=== PATIENT | male | born 2000 | race Caucasian/White ===

== ENCOUNTER 2023-03-14 08:55 | Outpatient (AMB) | payer OTHER, SELFPAY ==
--- NOTE | 2023-03-14 09:35 | MHC.AMDMED ---
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 2= needs review? 3= comprehend keep point? 4= demonstrates understanding/ competent? NC= Not Covered Topics Learning Objective: Initial visit Initial or post srvc Initial or post srvc Initial or post srvc Initial or post srvc Initial or post srvc Post srvc Comments Pre Edu-assessment/plan Outcome or reassess Outcome or reassess Outcome or reassess Outcome or reassess Outcome or reassess Outcome or reassess Diabetes pathophysiology 1 Healthy eating 2 Being active Taking medication 2 Monitoring glucose 2 Acute complication 1 Chronic complicated Lifestyle and healthy coping Diabetes distress in support ?Diabetes pathophysiology: ?Defined diabetes med identify own type of diabetes; list 3 options for treating diabetes Healthy eating: ?Described effect of type, amount and ?timing of food on blood glucose; list 3 methods for planning meal Being active: ?State effect of exercise on blood glucose level Taking medication: ?State effect of diabetes medications on diabetes; name diabetes medications taking, action and side effects Monitoring glucose: ?Identify recommended blood glucose targets and personal target Acute complication: ?List symptoms and treatment of hyper and hypoglycemia, DKA, sick day guidelines and guidelines for severe weather or situations of crisis and diabetes supply manage Chronic complication: ?To find the relationship of blood glucose levels to long-term complications of diabetes in screening and preventative measures Lifestyle and healthy coping: ?Described lifestyle and healthy coping strategies to rule out diabetes self-management Diabetes to stress and support: ?Recognize Diabetes to stress and be able to identified support options Learning objectives: The patient was provided with verbal and written education on the following topics as outlined below. The patient met all learning objectives and was able to verbalize understanding and provide teach back of education topics discussed . The patient was provided with the opportunity to ask questions and all questions were answered. Patient Assessment Assess patient education level/literacy/barriers Patient questions/concerns, patient newly diagnosed with type 1 diabetes in November 2022. He did not bring glucometer to today's visit he does report he tests 3-4 times daily before meals. He is currently taking Lantus 12 units daily Humalog 6 units before meals, he reports infrequent hypoglycemic events His A1c at time of diagnosis was 10.6%, reports that he had been experiencing unexplained weight loss infrequent urination before diagnosis Since starting insulin, symptom have improved What is Diabetes? Pathophysiology How the body produces and uses insulin Identify type of DM Risk factors Signs of Diabetes Brief overview of Diabetes Management Monitoring blood sugar Following a meal plan Regular exercise Maintaining a healthy weight Taking medication as needed Members of the care team (PCP, RN, MA, RD, CDE, lithographic press operator) Blood glucose monitoring When/how often to test Target blood sugar ranges Patient did not bring meter to today's visit Introduction to Nutrition Importance of healthy diet in managing DM Diet is personalized to individual preference Review patient?s regular diet/food preferences Who prepares meals/does food shopping/ Dining out?/ Barriers? How diet effects glucose Eating 3 balanced meals a day with small, healthy snacks between meals Review food groups Carbohydrates: What is a carbohydrate/Which food/food groups are considered carbohydrates Effect of carbohydrates on blood glucose Portion sizes Reading food labels Basic carb counting (if applicable per nursing assessment) Plate method Meal planning Recommendations: Follow plate method, consistent carbs and read nutritional labels. Smart Goal: Patient will keep meals 45-60 g per meal, 15 g per snack Educational Materials: The patient was provided with the following written educational materials: Planning Healthy Meals Handout Patient Response to instructions: Comprehension of Instructions: Fair Readiness to make changes: Contemplation How confident they feel about making changes: Positive Patient Instructions: People with diabetes face a higher risk for complications. In general, people with diabetes are more likely to experience severe symptoms and complications when infected with a virus. The problem people with diabetes face is primarily a problem of worse outcomes Before you get sick,?make a plan: Gather your supplies: ? Phone numbers of your doctors and healthcare team, your pharmacy and your insurance provider ? List of medications and doses (including vitamins and supplements) ? Simple carbs like regular soda, honey, jam, Jell-O, hard candies or popsicles to help keep your blood sugar up if you are at risk for lows and too ill to eat ? If a state of emergency is declared, get extra refills on your prescriptions so you do not have to leave the house ?? If you can't get to the pharmacy, find out about having your medications delivered ? Always have enough insulin for the week ahead, in case you get sick or cannot refill ? Extra supplies like rubbing alcohol and soap to wash your hands ? Glucagon and ketone strips, in case of lows and highs ? Have enough household items and groceries on hand so that you will be prepared to stay at home for a period of time Talk to your health care team about the following: ? When to call your doctor's office (for ketones, changes in food intake, medication adjustments, etc.) ? How often to check your blood sugar ? When to check for ketones ? Medications you should use for colds, flu, virus, and infections ? Any changes to your diabetes medications when you are sick Take everyday precautions: ? Avoid close contact with people who are sick ? Take preventive actions: ??? Clean your hands often Wash your hands often with soap and water for at least 20 seconds, especially after blowing your nose, coughing, or sneezing, or having been in a public place. ?? If soap and water are not available, use a hand corporate associate attorney that contains at least 60% alcohol. To the extent possible, avoid touching high-touch surfaces in public places?elevator buttons, door handles, handrails, handshaking with people, etc. Use a tissue or your sleeve to cover your hand or finger if you must touch something. Wash your hands after touching surfaces in public places. ? Avoid touching your face, nose, eyes, etc. Clean and disinfect your home to remove germs: practice routine cleaning of frequently touched surfaces (for example: tables, doorknobs, light switches, handles, desks, toilets, faucets, sinks & cell phones) Avoid crowds, especially in poorly ventilated spaces. Your risk of exposure to respiratory viruses like COVID-19 may increase in crowded, closed-in settings with little air circulation if there are people in the crowd who are sick. Avoid all non-essential travel including plane trips, and especially avoid embarking on cruise ships. Watch for emergency warning signs: If you develop emergency warning signs get medical attention?immediately. In adults, emergency warning signs include: ? Difficulty breathing or shortness of breath ? Persistent pain or pressure in the chest ? New confusion or inability to arouse ? Bluish lips or face If you do get sick, know what to do: Here are some common tips, which may vary for each person: ? Drink lots of fluids. If you're having trouble keeping water down, have small sips every 15 minutes or so throughout the day to avoid dehydration. ? If you are experiencing a low (blood sugar below 70 mg/dl or your target range), eat 15 grams of simple carbs that are easy to digest like honey, jam, Jell-O, hard candy, popsicles, juice or regular soda, and re-check your blood sugar in 15 minutes to make sure your levels are rising. Check your blood sugar extra times throughout the day and night (generally, every 2-3 hours; if using a CGM, monitor frequently). ? If your blood sugar has registered high (BG greater than 240mg/dl) more than 2 times in a row ? Call your doctor's office immediately, if you have medium or large ketones (and if instructed to with trace or small ketones). ? Wash your hands and clean your injection/infusion and finger-stick sites with soap and water or rubbing alcohol. Why do blood glucose values go up when I am sick? Your body is under stress when you are sick. Hormones that are released to help fight the illness can also raise your glucose levels. Your body becomes less sensitive to your insulin too, so you need more to have the same effect compared to when you are well. What should I always keep on hand to be prepared for a sick day? Glucose testing kit and strips (more than you think you will need) or CGM sensors ? Ketone testing supplies, either urine or special test strips for fingerstick testing with specific meter (even if you feel you never get sick because the level of ketones lets you and your team know how severely your diabetes is being affected by your illness) ? Plenty of water or sugar-free beverages ? Plenty of all your types of insulin What should I do when I am sick? Continue to take your insulin even if you are not eating much. Take your long acting insulin or continue your basal insulin if you are on an insulin pump. ? Check your blood glucose values every 3-4 hours. If you have a continuous glucose monitor, watch for trends and make sure your correctional insulin is working. ? Check for ketones even if your blood glucose values are not high. Call your diabetes team if your ketones are moderate or high. When you are sick, they can be high even when your glucose values are within your target range. ? Stay well hydrated, drinking fluid every hour ? tea, water, diet soda, broth. ? Make sure you are also eating some carbohydrates When should I call for help? You have been sick or had a fever for a few days and are not getting better. ? You are vomiting or have diarrhea for more than 6 hours. ? You have moderate to large ketones even if your glucose is not high. ? Your blood glucose values stay above 240 mg/dl even when you are giving extra insulin. You are not sure what to do When should I get help right away? Follow up with Diabetes Education Nurse in 1 month Coding Level of Care Code Tele Est Pt Level 1 (58885) Diagnoses Diabetes, type I E10.9
== END 2023-03-14 10:08 | disposition home or self-care (01) ==
PROVIDERS: PCP Pediatrics; Visit Provider Registered Nurse Diabetes Educator
DX: E10.9 Type 1 diabetes mellitus without complications (principal)
CPT/HCPCS: 99211

== ENCOUNTER → 2023-03-14 08:55 | Outpatient (BNVA) | payer OTHER, SELFPAY | PROVIDERS: Visit Provider Registered Nurse Diabetes Educator ==

== ENCOUNTER 2023-04-20 12:31 | Outpatient (AMB) | payer OTHER, SELFPAY ==
--- NOTE | 2023-04-20 13:26 | A.OFFVIS_ITS ---
Intake Intake Visit Reasons: DM HPI Comprehensive Diabetes Asmnt Most Recent Diabetes Results: No Data to Display Assessment & Plan Assessment & Plan (1) Diabetes, type I: Code(s): E10.9 - Type 1 diabetes mellitus without complications Plan: Diabetes self-management education and support participation record Assessment/scale: 1= needs instructed? 2= needs review? 3= comprehend keep point? 4= demonstrates understanding/ competent? NC= Not Covered Topics Learning Objective: Initial visit Initial or post srvc Initial or post srvc Initial or post srvc Initial or post srvc Initial or post srvc Post srvc Comments Pre Edu-assessment/plan Outcome or reassess Outcome or reassess Outcome or reassess Outcome or reassess Outcome or reassess Outcome or reassess Diabetes pathophysiology 1 3 Healthy eating 2 Being active 2 Taking medication 2 B Monitoring glucose 2 3 Acute complication 1 3 Chronic complicated 1 Lifestyle and healthy coping 1 Diabetes distress in support 2 ?Diabetes pathophysiology: ?Defined diabetes med identify own type of diabetes; list 3 options for treating diabetes Healthy eating: ?Described effect of type, amount and ?timing of food on blood glucose; list 3 methods for planning meal Being active: ?State effect of exercise on blood glucose level Taking medication: ?State effect of diabetes medications on diabetes; name diabetes medications taking, action and side effects Monitoring glucose: ?Identify recommended blood glucose targets and personal target Acute complication: ?List symptoms and treatment of hyper and hypoglycemia, DKA, sick day guidelines and guidelines for severe weather or situations of crisis and diabetes supply manage Chronic complication: ?To find the relationship of blood glucose levels to long- term complications of diabetes in screening and preventative measures Lifestyle and healthy coping: ?Described lifestyle and healthy coping strategies to rule out diabetes self-management Diabetes to stress and support: ?Recognize Diabetes to stress and be able to identified support options Learning objectives: The patient was provided with verbal and written education on the following topics as outlined below. The patient met all learning objectives and was able to verbalize understanding and provide teach back of education topics discussed . The patient was provided with the opportunity to ask questions and all questions were answered. Patient Assessment Assess patient education level/literacy/barriers Patient questions/concerns, patient at visit with his mother. Patient has appointment with unload associate on 04/21/2023. At that visit patient will be due for next A1c Reviewed patient's glucose meter download, patient testing 2-3 times daily Patient has several episodes hypoglycemia, patient reports he has been taking Lantus 10 units and not using Humalog. Recommended to patient he discuss hypoglycemic events with unload associate, and continues glucose monitoring with alerts and alarms Patient has not obtained ketones is instructed to last visit Reviewed from last rule about testing for ketones. Suggested to patient he discuss with his unload associate a plan if he is positive for ketones walk insulin plan should be Patient's fasting glucose range from 56-145 mg/dL Blood glucose testing more sporadic throughout the day Exercise Medical clearance Effect of exercise on blood sugar Start slowly and gradually increase pace/duration over time Goal amount of exercise Checking blood glucose/have a source of carbs with you Medications (If applicable) * Name of medication * Dosing/administration instructions * Mechanism of action * Potential side effects * Potential adverse reaction and appropriate treatment * Review onset, peak, duration Assess for concerns re: insurance coverage, cost, barriers to compliance Insulin/Injectables (If applicable) * Storage/care of insulin * Injection sites * Site rotation * Onset, peak, duration * Drawing up insulin * Injecting insulin/other injectables * Sharps disposal Continuous blood glucose monitoring (if applicable) Hypoglycemia and Hyperglycemia * Signs and symptoms * Causes * Treatment * Preventing hypoglycemia * When to seek medical attention Medical alert bracelet Lifestyle * Work * Travel * Stress management * Problem solving Know your goals * A1C * Blood sugar targets * Blood pressure * Cholesterol/LDL Urine microalbumin Smart Goal Assessment: Pt met goal:Pt All of the time/100%: 75% of the time: 50% of the time: Less than 25% the time: New Goal:? Educational Materials: The patient was provided with the following written educational materials: Diabetes screening checklist Patient Response to instructions: Comprehension of Instructions: Good Readiness to make changes: action How confident they feel about making changes: positive Patient Instructions: DIABETES PROBLEMS HOMECARE INSTRUCTIONS Hypo instructions ? When first signs of insulin reaction occur, immediately drink orange juice or cola, or suck on a sugar cube, but only if the person is conscious. ? Person with diabetes should continue taking insulin when ill, unless he/she is not able to eat.? Regularly check blood sugar or urine for sugar and acetone during illness. ? Exercise regularly. ? Pay special attention to the feet.? Avoid cuts, sores, blisters, ill- fitting shoes, or going barefoot.? Promptly treat injuries to the feet. ? Take medications as directed by physician. ? Drink extra water or noncaffeinated, nonsugared drinks to prevented hydration. Signs and symptoms of low blood sugar (happen quickly) Each person's reaction to low blood sugar is different. Learn your own signs and symptoms of when your blood sugar is low. Taking time to write these symptoms down may help you learn your own symptoms of when your blood sugar is low. From milder, more common indicators to most severe, signs and symptoms of low blood sugar include: Feeling shaky Being nervous or anxious Sweating, chills and clamminess Irritability or impatience Confusion Fast heartbeat Feeling lightheaded or dizzy Hunger Nausea Color draining from the skin (pallor) Feeling Sleepy Feeling weak or having no energy Blurred/impaired vision Tingling or numbness in the lips, tongue, or cheeks Headaches Coordination problems, clumsiness Hypoglycemia or blood glucose under 70 use the rule of 15's: If you have your blood glucose meter test your blood glucose, if you do not have your meter still follow below instruction: Keep quick-sugar foods with you at all times.? Take 15 grams of fast acting carbohydrates. Examples are 4 ounces of fruit juice or regular soda pop, 8 ounces fat-free milk, 1 tablespoon of table sugar, honey or corn syrup, jam, one miniature box of raisins, 7-8 gumdrops or Life Savers candy, 4 glucose tablets, and glucose gel.? Retest blood glucose in 15 minutes, if blood glucose is still under 80,repeat rule of 15's. If blood glucose is under 50, take 30 grams of fast acting carbohydrates If you are having hypoglycemia, or insulin reaction, more that a few times a week, call MD or tobacco educator F/U BG check Coding Level of Care Code Est Pt Level 1 (85356) Diagnoses Diabetes, type I E10.9
== END 2023-04-20 13:38 | disposition home or self-care (01) ==
PROVIDERS: Visit Provider Registered Nurse Diabetes Educator
DX: E10.9 Type 1 diabetes mellitus without complications (principal)

== ENCOUNTER → 2023-04-20 12:31 | Outpatient (BNVA) | payer OTHER, SELFPAY | PROVIDERS: Visit Provider Registered Nurse Diabetes Educator | DX: E10.9 Type 1 diabetes mellitus without complications (principal) | CPT/HCPCS: 99211 ==

== ENCOUNTER 2023-07-31 12:27 | Outpatient (AMB) | payer OTHER, SELFPAY ==
--- NOTE | 2023-07-31 13:36 | A.OFFVIS_ITS ---
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 Accompanied by: Self / Same As Patient HPI Comprehensive Diabetes Asmnt Most Recent Diabetes Results: No Data to Display Assessment & Plan Assessment & Plan (1) Diabetes, type I: Code(s): E10.9 - Type 1 diabetes mellitus without complications Plan: CGM Info Instructed Pt on what CGM can and can't do CGM Can: Give Pt minute by minute reading of glucose levels Displays glucose trend arrows that represents the direction glucose levels are fluctuating Give insight on decisions about how to dose insulin CGM cannot: Improve glucose control on its own Completely eliminate the need for all finger sticks Make dosing decision for you CGM is the reading of glucose in the interstitial fluid not actual blood glucose, finger sticks are still necessary when Pt's symptom?s do not match sensor reading and if sensors prompts Pt to do a fingerstick Patient? given sample of Dexcom G7 sensor apps downloaded on patient's phone patient left visit with sensor in warmup on back of right arm Reviewed guidelines for obtaining CGM Reviewed delay of CGM from fingersticks Reminded pt that if symptoms do not match sensor still needs to check fingersticks. after reviewing patient's download from meter, patient has having daily hypoglycemic events recommended to patient he reduce Basaglar from 14 units to 10 units patient has upcoming visit with dry house wheeler at the end July Patient Instructions: use rule of 15s to treat any hypoglycemia follow-up with staff development educator in 2 months if you would like to obtain CGM discussed with dry house wheeler at next visit Coding Level of Care Code Est Pt Level 1 (14597) Diagnoses Diabetes, type I E10.9
== END 2023-07-31 13:40 | disposition home or self-care (01) ==
PROVIDERS: PCP Pediatrics; Visit Provider Registered Nurse Diabetes Educator
DX: E10.9 Type 1 diabetes mellitus without complications (principal)

== ENCOUNTER → 2023-07-31 12:27 | Outpatient (BNVA) | payer OTHER, SELFPAY | PROVIDERS: PCP Pediatrics; Visit Provider Registered Nurse Diabetes Educator | DX: E10.9 Type 1 diabetes mellitus without complications (principal) | CPT/HCPCS: 99211 ==

== ENCOUNTER 2023-10-02 12:30 | Outpatient (AMB) | payer OTHER, SELFPAY ==
--- NOTE | 2023-10-02 12:34 | A.OFFVIS_ITS ---
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 2= needs review? 3= comprehend keep point? 4= demonstrates understanding/ competent? NC= Not Covered Topics Learning Objective: Initial visit Initial or post srvc Initial or post srvc Initial or post srvc Initial or post srvc Initial or post srvc Post srvc Comments Pre Edu-assessment/plan Outcome or reassess Outcome or reassess Outcome or reassess Outcome or reassess Outcome or reassess Outcome or reassess Diabetes pathophysiology 1 3 Healthy eating 2 Being active 2 Taking medication 2 Monitoring glucose 2 3 Acute complication 1 3 3 Pt reports he has ketone strips at home Chronic complicated 1 3 Lifestyle and healthy coping 1 3 Diabetes distress in support 2 3 ?Diabetes pathophysiology: ?Defined diabetes med identify own type of diabetes; list 3 options for treating diabetes Healthy eating: ?Described effect of type, amount and ?timing of food on blood glucose; list 3 methods for planning meal Being active: ?State effect of exercise on blood glucose level Taking medication: ?State effect of diabetes medications on diabetes; name diabetes medications taking, action and side effects Monitoring glucose: ?Identify recommended blood glucose targets and personal target Acute complication: ?List symptoms and treatment of hyper and hypoglycemia, DKA, sick day guidelines and guidelines for severe weather or situations of crisis and diabetes supply manage Chronic complication: ?To find the relationship of blood glucose levels to long- term complications of diabetes in screening and preventative measures Lifestyle and healthy coping: ?Described lifestyle and healthy coping strategies to rule out diabetes self-management Diabetes to stress and support: ?Recognize Diabetes to stress and be able to identified support options Learning objectives: The patient was provided with verbal and written education on the following topics as outlined below. The patient met all learning objectives and was able to verbalize understanding and provide teach back of education topics discussed . The patient was provided with the opportunity to ask questions and all questions were answered. Patient Assessment Assess patient education level/literacy/barriers Patient questions/concerns, patient is now using Dexcom G7 to monitor glucose Patient's average glucose for the past 2 weeks 139 mg/dL Patient above target 17% Patient at target 82% Patient below target 1% Patient reports last A1c done on 08/22/2023 6.7% He is currently prescribed Lantus 10 units Humalog 6 units before meals, however reports that he only does 6 units for large meals average meal 4 units, a correction or snack 2 units Exercise Medical clearance Effect of exercise on blood sugar Start slowly and gradually increase pace/duration over time Goal amount of exercise Checking blood glucose/have a source of carbs with you Medications (If applicable) * Name of medication * Dosing/administration instructions * Mechanism of action * Potential side effects * Potential adverse reaction and appropriate treatment * Review onset, peak, duration Assess for concerns re: insurance coverage, cost, barriers to compliance Insulin/Injectables (If applicable) * Storage/care of insulin * Injection sites * Site rotation * Onset, peak, duration * Drawing up insulin * Injecting insulin/other injectables * Sharps disposal Continuous blood glucose monitoring (if applicable) Hypoglycemia and Hyperglycemia * Signs and symptoms * Causes * Treatment * Preventing hypoglycemia * When to seek medical attention Medical alert bracelet Lifestyle * Work * Travel * Stress management * Problem solving Know your goals * A1C * Blood sugar targets * Blood pressure * Cholesterol/LDL Urine microalbumin Smart Goal Assessment: Patient will keep meals between 45-60 g per meal Pt met goal:Pt 75% of the time New Goal:? Patient will contact security messenger with questions or concern Educational Materials: The patient was provided with the following written educational materials: AADE screening checklist Patient Response to instructions: Comprehension of Instructions: Good Readiness to make changes: Action How confident they feel about making changes: Positive Patient Instructions: Include regular daily activity. ADA recommends 30 minutes of exercise 5 days a week. Weight loss talk to PCP or [facility] before starting new plan. Test blood sugar as directed; Fasting and 2hpp largest meal. Watch trends in results. Utilize results and to assess how food, physical activity and medications affect blood sugar results. Bring glucometer or CGM to next visit. Be knowledgeable about diabetes medication, its action, side effects, efficacy, toxicity, prescribed dosage, appropriate timing and frequency of administration, effect of missed and delayed doses and instructions for storage, travel and safety. Problem solving techniques to monitor hypo/hyperglycemia episodes and treatments. Reduce risk reduction behaviors, smoking cessation, regular eye, foot and dental examinations. Coding Level of Care Code Est Pt Level 1 (25251) Diagnoses Diabetes, type I E10.9
== END 2023-10-02 13:07 | disposition home or self-care (01) ==
PROVIDERS: PCP Pediatrics; Visit Provider Registered Nurse Diabetes Educator
DX: E10.9 Type 1 diabetes mellitus without complications (principal)

== ENCOUNTER → 2023-10-02 12:30 | Outpatient (BNVA) | payer OTHER, SELFPAY | PROVIDERS: PCP Pediatrics; Visit Provider Registered Nurse Diabetes Educator | DX: E10.9 Type 1 diabetes mellitus without complications (principal) | CPT/HCPCS: 99211 ==